=== PATIENT | male | born 1980 | race Caucasian/White ===

== ENCOUNTER 2016-03-26 17:25 | Emergency (ER) | payer OTHER ==
[2016-03-26] MEDS ORDERED: CEPHALEXIN 500 MG CAPSULE ONE (18:44)
[2016-03-26] MEDS ORDERED: SULFAMETHOXAZOLE 800 MG/TRIMETHOPRIM 160 MG TABLET ONE (18:44)
== END 2016-03-26 19:00 | disposition home or self-care (01) ==
LOC: ED 17:25
DX: L03.113 Cellulitis of right upper limb (principal)
CPT/HCPCS: 99283 ×2; A9270 ×2